=== PATIENT | male | born 1965 | race Caucasian/White ===

== ENCOUNTER 2024-07-13 02:58 | Emergency (ER) | payer MEDICAID ==
[~2024-07-13] VITALS: Ht 177.8 cm; Wt 132.7 kg
[2024-07-13 04:38] LABS: BILIRUBIN,URINE SMALL (Neg); CLARITY,URINE CLEAR (Clear); COLOR,URINE YELLOW (Yellow); GLUCOSE, URINE >=1000 mg/dl (Neg); KETONES,URINE TRACE mg/dl (Neg); LEUKOCYTE ESTERASE ,URINE NEGATIVE (Neg); OCCULT BLOOD,URINE NEGATIVE (Neg); PH,URINE 5.5 (4.8-8.0); PROTEIN,URINE TRACE mg/dl (Neg); UROBILINOGEN,URINE 0.2 E.U/dL (0.2-1.0)
[2024-07-13 04:39] LABS: UA COLLECTION TYPE NON-SPECIFIED
[2024-07-13 04:42] LABS: NITRITES, URINE NEGATIVE (Neg)
[2024-07-13 04:44] LABS: BACTERIA,URINE FEW /HPF (Neg); RBC,URINE 0-2 /HPF (0-2); WBC,URINE 0-4 /HPF (0-4)
[2024-07-13 04:45] LABS: MUCUS STRANDS MODERATE /LPF (Neg); SQUAMOUS EPITHELIAL CELL,UR FEW /LPF (FEW)
[2024-07-13 04:53] LABS: BASOPHILS # (AUTO) 0.1 X10'3 (0-0.2); BASOPHILS % (AUTO) 0.8 % (0-1); EOSINOPHILS # (AUTO) 0.2 X10'3 (0-0.9); EOSINOPHILS % (AUTO) 1.3 % (0-6); HEMATOCRIT 53.4 % (42.0-52.0); LYMPHOCYTES # (AUTO) 1.4 X10'3 (1.1-4.8); LYMPHOCYTES % (AUTO) 9.1 % (21-51); MEAN CORPUSCULAR HEMOGLOBIN 31.2 PG (27.0-31.0); MEAN CORPUSCULAR HGB CONC 34.4 g/dL (33.0-36.5); MEAN CORPUSCULAR VOLUME 90.6 FL (78-98); MONOCYTES # (AUTO) 1.3 X10'3 (0-0.9); NEUTROPHILS # (AUTO) 12.8 X10'3 (1.8-7.7); NEUTROPHILS % (AUTO) 80.8 % (42-75); PLATELET COUNT 179 X10'3 (140-440); RED BLOOD COUNT 5.89 X10'6 (4.70-6.10); RED CELL DISTRIBUTION WIDTH 15.4 % (11.5-14.5); WHITE BLOOD COUNT 15.8 X10'3 (4.5-11.0)
[2024-07-13 04:57] LABS: HEMOGLOBIN 18.4 g/dl (14.0-17.9)
[2024-07-13 05:00] LABS: ALANINE AMINOTRANSFERASE 40 U/L (12-78); ALBUMIN 4.8 G/DL (3.4-5.0); ALBUMIN/GLOBULIN RATIO 1.2 (1.1-1.5); ALKALINE PHOSPHATASE 107 IU/L (46-116); ANION GAP 12 (8-16); ASPARTATE AMINO TRANSFERASE 25 U/L (10-37); BILIRUBIN,TOTAL 1.4 MG/DL (0.1-1.0); BLOOD UREA NITROGEN 35 MG/DL (7-18); BUN/CREATININE RATIO 18.4 (10.0-20.0); CALCIUM 11.9 MG/DL (8.5-10.1); CHLORIDE 99 MMOL/L (99-107); GLUCOSE 249 MG/DL (70-104); LIPASE 28 U/L (16-77); POTASSIUM 4.5 MMOL/L (3.5-5.1); SODIUM 134 MMOL/L (135-145); TOTAL CARBON DIOXIDE 23.5 MMOL/L (24-32); TOTAL PROTEIN 8.8 G/DL (6.4-8.2); eCRCL 42 ML/MIN; eGFR 36 ML/MIN
[2024-07-13] MEDS: normal saline 1000ml 1,000 ML IV ONE ×4 (05:32→05:41)
[2024-07-13] MEDS ORDERED: DICY20TA17 PO (05:34)
[2024-07-13] MEDS ORDERED: ONDA-243 PO (05:34)
[2024-07-13] MEDS: dicyclomine 10 MG capsule PO ONE (05:39)
[2024-07-13] MEDS: ondansetron/PF 4mg/2ml inj IV ONE (05:40)
[2024-07-13 06:57] VITALS: BP 108/61; PULSE 78; RESP 16; TEMP 97.8; O2SAT 99
== END 2024-07-13 06:59 | disposition home or self-care (01) ==
LOC: ER 03:00
DX: R19.7 Diarrhea, unspecified (principal); R11.2 Nausea with vomiting, unspecified; N17.9 Acute kidney failure, unspecified; E87.1 Hypo-osmolality and hyponatremia; E86.0 Dehydration; R71.8 Other abnormality of red blood cells; I10 Essential (primary) hypertension; Z88.8 Allergy status to other drugs, medicaments and biological substances; Z79.899 Other long term (current) drug therapy
CPT/HCPCS: 36415; 80053; 81001; 83690; 85025; 96361; 96374; 99283; J2405; J7030

== ENCOUNTER 2025-04-08 13:23 | Outpatient (CLI) | payer MEDICAID ==
[~2025-04-08 13:23] MED LIST: DICY20TA17 PO; ONDA-243 PO
--- NOTE | 2025-04-08 14:19 | RADIOLOGY REPORT ---
EXAM: CT CT CHEST LOW DOSE INDICATION: PERSONAL HISTORY OF NICOTINE DEPENDENCE TECHNIQUE: Low-dose noncontrast CT of the lungs have been obtained. All CT scans at this facility use dose modulation, iterative reconstruction, and/or weight based dosing when appropriate to reduce rad iation dose to as low as reasonably achievable. COMPARISON: None FINDINGS: LOWER NECK: Unremarkable LYMPH NODES/MEDIASTINUM: No abnormal lymph nodes by CT size criteria CARDIOVASCULAR: Normal cardiac size. No pericardial effusion. No aneurysmal dilatation of the great v essels. Coronary artery calcifications. UPPER ABDOMEN: Limited evaluation secondary to photon starvation. Unremarkable. MUSCULOSKELETAL: Multilevel degenerative change of the visualized spine. No acute fracture or aggress janeth focal osseous lesion. CHEST WALL: Unremarkable. LUNG/PLEURAL SPACE: No consolidation, suspicious focal airspace opacity, or suspicious nodules. No pl eural effusion or pneumothorax. IMPRESSION: 1. No CT evidence of an acute intrathoracic process. LUNG-RADS: 1- Negative RECOMMENDATION: Annual low dose lung screening CT is recommended for 15 years after smoking cessation or until age 77. CITATION: Lung cancer screening categorization and recommendations per [employer] Lung-RADS Version 1.0 (http://[email or web address].org/Quality-Safety/Resources/LungRADS).
== END 2025-04-08 23:59 | disposition home or self-care (01) ==
LOC: RAD 13:23
PROVIDERS: ATTEND Nurse Practitioner Family
DX: Z12.2 Encounter for screening for malignant neoplasm of respiratory organs (principal); Z87.891 Personal history of nicotine dependence; M47.814 Spondylosis without myelopathy or radiculopathy, thoracic region
CPT/HCPCS: 71271